=== PATIENT | female | born 1990 | race Caucasian/White ===

== ENCOUNTER → 2017-09-20 16:47 | Outpatient (REF) | payer BC, SELFPAY ==
--- NOTE | 2017-09-20 12:15 | PAPFT_PTH ---
PATIENT: Abelino Mandujano LOC: [facility] U#:[id number] AGE/SX: 35/F ROOM: RE09/20/[address]: Yumiko Mendieta : 1990 BED: DIS: SPEC #: [id number] RECD: 09/21/17 12:53 STATUS: CHRISTIN ACOSTA #: [id number] ANNE: 09/20/17 12:[address]: Yumiko Mendieta DEPT: [facility] Cytology RECD BY: Alesia Pelletier Tissues: 1 - CX/ENDOCX FOR PAP SMEARS Procedures: PAP THIN PREP/[facility] Screening Comments: [id number] (CHLAMYDIA GC) (UNSATISFACTORY FOR EVALUATION)
[2017-09-22 14:30] LABS: Chlamydia Result Negative; GC Result Negative; Specimen Description SEE COMMENTS
== END ==
LOC: NCHCN 16:47
PROVIDERS: PCP Family Medicine; Visit Provider Family Medicine
DX: Z00.00 Encounter for general adult medical examination without abnormal findings (principal); Z11.3 Encounter for screening for infections with a predominantly sexual mode of transmission; Z12.4 Encounter for screening for malignant neoplasm of cervix; Z11.51 Encounter for screening for human papillomavirus (HPV)
CPT/HCPCS: 87491; 87591; 88142; 87624

== ENCOUNTER 2017-11-13 10:17 | Outpatient (REF) | payer BC, SELFPAY ==
[2017-11-16 12:37] LABS: Benzoylecgonine Negative ng/mL (Cutoff: 50); Cocaine Negative ng/mL (Cutoff: 50); Cocaine Interpretation Negative.
== END 2017-11-13 10:37 ==
LOC: NCHCN 10:17
PROVIDERS: PCP Family Medicine; Visit Provider Family Medicine
DX: F11.20 Opioid dependence, uncomplicated (principal); F14.10 Cocaine abuse, uncomplicated
CPT/HCPCS: 80353

== ENCOUNTER 2018-04-25 08:00 | Outpatient (REF) | payer MEDICAID, SELFPAY ==
[2018-04-30 09:38] LABS: Benzoylecgonine 98 ng/mL (Cutoff: 50); Cocaine Negative ng/mL (Cutoff: 50); Cocaine Interpretation Positive.
== END 2018-04-25 08:20 ==
LOC: NCHCN 08:00
PROVIDERS: PCP Family Medicine; Visit Provider Family Medicine
DX: F11.20 Opioid dependence, uncomplicated (principal)
CPT/HCPCS: 80353

== ENCOUNTER 2018-08-08 15:19 | Outpatient (REF) | payer MEDICAID, SELFPAY ==
[2018-08-14 13:53] LABS: Benzoylecgonine 196 ng/mL (Cutoff: 50); Cocaine Negative ng/mL (Cutoff: 50); Cocaine Interpretation Positive.
== END 2018-08-08 15:39 ==
LOC: NCHCN 15:19
PROVIDERS: PCP Family Medicine; Visit Provider Family Medicine
DX: F11.20 Opioid dependence, uncomplicated (principal)
CPT/HCPCS: 80353

== ENCOUNTER 2018-09-26 19:55 | Outpatient (REF) | payer MEDICAID, SELFPAY ==
[2018-10-12 02:14] LABS: Benzoylecgonine 108 ng/mL (Cutoff: 50); Cocaine Negative ng/mL (Cutoff: 50); Cocaine Interpretation Positive.
== END 2018-09-26 20:15 ==
LOC: NCHCN 19:55
PROVIDERS: PCP Family Medicine; Visit Provider Family Medicine
DX: F11.20 Opioid dependence, uncomplicated (principal)
CPT/HCPCS: 80353

== ENCOUNTER 2018-10-10 09:47 | Outpatient (REF) | payer MEDICAID, SELFPAY ==
--- NOTE | 2018-10-10 08:15 | PAPFT_PTH ---
PATIENT: Abelino Mandujano LOC: [facility] U#:[id number] AGE/SX: 28/F ROOM: RE10/10/[address]: Yumiok Mendieta : 1990 BED: DIS: 10/10/2018 SPEC #: [id number] RECD: 10/10/18 13:01 STATUS: CHRISTIN ACOSTA #: [id number] ANNE: 10/10/18 08:[address]: Yumiko Mendieta DEPT: [facility] Cytology RECD BY: Alesia Pelletier Tissues: 1 - CX/ENDOCX FOR PAP SMEARS Procedures: PAP THIN PREP/[facility] Screening Comments: [id number] (CHLAMYDIA/GC)
[2018-10-10 13:47] LABS: HCT 41.2 % (36.0-46.0); HGB 13.8 g/dL (12.0-15.5); Mean Corp. HGB Concentration 33.5 g/dL (32.0-36.0); Mean Corpuscular Hemoglobin 28.9 pg (27.0-33.0); Mean Corpuscular Volume 86.2 fL (80-95); Mean Platelet Volume 11.2 fL (8.0-11.0); Platelet Count 252 x1000/uL (130-400); RBC 4.78 m/cumm (4.00-5.20); RBC Distribution Width 13.6 % (11.7-14.6); White Blood Cell Count 9.06 k/cumm (4.4-10.8)
[2018-10-10 14:08] LABS: ALT 23 U/L (12-78); AST 14 U/L (15-37); Alkaline Phosphatase 39 U/L (46-116); Anion Gap 11.3 mmol/L (3-11); BUN 7 mg/dL (7-18); Bilirubin, Total 0.3 mg/dL (0.2-1.0); CO2 26.7 mmol/L (21.0-32.0); CREATININE 0.85 mg/dL (0.55-1.02); Calcium 9.1 mg/dL (8.5-10.1); Chloride 101 mmol/L (98-107); Glucose 82 mg/dL (70-100); Sodium 139 mmol/L (136-145); Total Protein 7.2 g/dL (6.4-8.2)
[2018-10-11 15:27] LABS: Chlamydia Result Negative; GC Result Negative; Specimen Description SEE COMMENTS
[2018-10-12 12:01] LABS: IgA 87 mg/dL (85-499); Interpretation SEE COMMENTS; Tissue Transglutaminase IgA <1.2 U/mL (<4.0)
[2018-10-17 07:36] LABS: Benzoylecgonine 511 ng/mL (Cutoff: 50); Cocaine Negative ng/mL (Cutoff: 50); Cocaine Interpretation Positive.
== END 2018-10-10 10:07 ==
LOC: NCHCN 09:47
PROVIDERS: PCP Family Medicine; Visit Provider Family Medicine
DX: F11.20 Opioid dependence, uncomplicated (principal); R63.4 Abnormal weight loss; Z11.3 Encounter for screening for infections with a predominantly sexual mode of transmission; Z12.4 Encounter for screening for malignant neoplasm of cervix; Z00.00 Encounter for general adult medical examination without abnormal findings
CPT/HCPCS: 80053; 82784; 83516; 85027; 87491; 87591; 88142; 80353; 84443

== ENCOUNTER 2018-11-14 23:11 | Outpatient (REF) | payer MEDICAID, SELFPAY ==
[2018-11-21 15:18] LABS: Benzoylecgonine 852 ng/mL (Cutoff: 50); Cocaine Negative ng/mL (Cutoff: 50); Cocaine Interpretation Positive.
== END 2018-11-14 23:31 ==
LOC: NCHCN 23:11
PROVIDERS: PCP Family Medicine; Visit Provider Family Medicine
DX: F11.20 Opioid dependence, uncomplicated (principal)
CPT/HCPCS: 80353

== ENCOUNTER 2018-12-05 14:30 | Outpatient (REF) | payer MEDICAID, SELFPAY ==
[2018-12-10 08:01] LABS: Benzoylecgonine 164 ng/mL (Cutoff: 50); Cocaine Negative ng/mL (Cutoff: 50); Cocaine Interpretation Positive.
== END 2018-12-05 14:50 ==
LOC: NCHCN 14:30
PROVIDERS: PCP Family Medicine; Visit Provider Family Medicine
DX: F14.10 Cocaine abuse, uncomplicated (principal)
CPT/HCPCS: 80353

== ENCOUNTER 2019-11-07 18:58 | Outpatient (REF) | payer MEDICAID, SELFPAY ==
[2019-11-10 20:01] LABS: C.trach, Misc, Amplified RNA Negative (Negative); N.gonorr, Misc, Amplified RNA Negative (Negative); SOURCE: THROAT
[2019-11-11 10:46] LABS: Hepatitis C Ab w Rflx HCV PCR Negative (Negative); Syphilis Serology (RPR) Negative (Negative)
[2019-11-11 10:54] LABS: HIV-1/2 Ag & Ab Screen Negative (Negative)
[2019-11-11 15:12] LABS: Chlamydia Result Negative (Negative); GC Result Negative (Negative)
== END 2019-11-07 19:18 ==
LOC: NCHCN 18:58
PROVIDERS: PCP Family Medicine; Visit Provider Nurse Practitioner Family
DX: Z11.3 Encounter for screening for infections with a predominantly sexual mode of transmission (principal); Z11.59 Encounter for screening for other viral diseases; Z11.4 Encounter for screening for human immunodeficiency virus [HIV]
CPT/HCPCS: 86803; 87389; 87491; 87591; 86592

== ENCOUNTER 2020-08-11 22:12 | Outpatient (REF) | payer MEDICAID, SELFPAY ==
[2020-08-13 13:54] LABS: COVID-19 RT-PCR UVMMC Result Negative (Negative)
== END 2020-08-11 22:13 | disposition home or self-care (01) ==
LOC: NCHCN 22:12
PROVIDERS: PCP Family Medicine; Visit Provider Nurse Practitioner Family
DX: Z20.822 Contact with and (suspected) exposure to COVID-19 (principal); J06.9 Acute upper respiratory infection, unspecified
CPT/HCPCS: U0003

== ENCOUNTER 2022-05-10 14:35 | Outpatient (REF) | payer MEDICAID, SELFPAY ==
--- NOTE | 2022-05-10 14:00 | PAPFT_PTH ---
PATIENT: Abelino Mandujano LOC: [facility] U#:[id number] AGE/SX: 32/F ROOM: RE05/10/[address]: Carolina Welch : 1990 BED: DIS: 05/10/2022 SPEC #: [id number] RECD: 05/11/22 13:02 STATUS: CHRISTIN REEzra #: [id number] ANNE: 05/10/22 14:[address]: Carolina Welch DEPT: [facility] Cytology RECD BY: Alesia Pelletier ENTERED: 05/11/22 13:02 SP TYPE: PAPFT OTHR DR: Yumiko Mendieta Tissues: 1 - CX/ENDOCX FOR PAP SMEARS Procedures: PAP THIN PREP/[facility] Screening HPV DNA PROBE Comments: [id number] (CHLAMYDIA/GC)
[2022-05-12 13:50] LABS: Chlamydia Result Negative (Negative); GC Result Negative (Negative)
== END 2022-05-10 14:36 | disposition home or self-care (01) ==
LOC: LBN 14:35
PROVIDERS: PCP Family Medicine; Visit Provider Nurse Practitioner Family
DX: Z11.3 Encounter for screening for infections with a predominantly sexual mode of transmission (principal); Z12.4 Encounter for screening for malignant neoplasm of cervix; Z11.51 Encounter for screening for human papillomavirus (HPV)
CPT/HCPCS: 87491; 87591; 88142; 87624

== ENCOUNTER 2022-06-29 16:51 | Outpatient (REF) | payer MEDICAID, SELFPAY ==
[2022-06-29 21:29] LABS: ESR 9 mm/hr (0-20)
[2022-06-29 21:31] LABS: HGB 14.1 g/dL (11.2-15.7); MCH 28.6 pg (27.0-33.0); MCHC 32.8 % (32.0-36.0); MCV 87 fL (80-95); MPV 10.3 fL (8.0-11.0); Platelet Count 281 10^3/uL (130-400); RBC 4.93 10^6/uL (3.93-5.22); RDW 12.3 % (11.7-14.6); RDW-SD 39.6 fL; WBC 8.25 10^3/uL (4.4-10.8)
[2022-06-29 22:05] LABS: Ferritin 88 ng/mL (8-252)
[2022-06-29 22:26] LABS: C-Reactive Protein 0.13 mg/dL (0.0-0.3)
[2022-06-29 23:00] LABS: Vitamin D 25 Total 26.5 ng/mL (30-100)
== END 2022-06-29 16:52 | disposition home or self-care (01) ==
LOC: NCHCN 16:51
PROVIDERS: PCP Family Medicine; Visit Provider Nurse Practitioner Family
DX: R53.83 Other fatigue (principal)
CPT/HCPCS: 82306; 85027; 85652; 82728; 86140

== ENCOUNTER 2022-12-26 09:37 | Outpatient (REF) | payer MEDICAID, SELFPAY ==
[2022-12-26 23:07] LABS: Vitamin D 25 Total 25.8 ng/mL (30-100)
[2022-12-27 00:08] LABS: Vitamin B12 493 pg/mL (193-986)
== END 2022-12-26 09:38 ==
LOC: NCHCN 09:37
PROVIDERS: PCP Family Medicine; Visit Provider Internal Medicine Sleep Medicine
DX: G47.61 Periodic limb movement disorder (principal); R53.83 Other fatigue; E55.9 Vitamin D deficiency, unspecified
CPT/HCPCS: 82306; 82607